=== PATIENT | male | born 1965 | race Caucasian/White ===

== ENCOUNTER 2019-12-08 14:42 | Emergency (ER) | payer OTHER, SELFPAY ==
--- NOTE | 2019-12-08 14:44 | XR_ITS ---
WS: [id number] Left wrist, 3 views, 12/08/2019 Clinical Data: pain/injury Comparison: None. Findings: No fractures or dislocations are seen. The carpal bones are intact. There is no soft tissue swelling. The distal radius and ulna are not remarkable. There are radiopaque fragments adjacent to the distal scaphoid and in the subcutaneous tissue of the left first metacarpal. XR/XR wrist LT min 3V* [id number] Impression: 1. Negative for fracture or dislocation. 2. Metal fragments in the subcutaneous tissues of the lateral posterior left wr ist and also in the thenar eminence.
[2019-12-08 15:08] VITALS: BP 138/73; PULSE 65; RESP 14; TEMP 36.5; O2SAT 96; BMI 27.6
--- NOTE | 2019-12-08 15:17 | W.ED.UPPEXIN ---
HPI - Extremity Injury (Upper) General: Chief Complaint: Wound/Laceration Stated Complaint: L WRIST INJURY Time Seen by Provider: 12/08/19 15:17 Source: patient Mode of arrival: ambulatory Limitations: no limitations History of Present Illness: HPI narrative: Patient is a 54-year-old male presents to ED today with a complaint of a left hand injury. Patient tells me he was using a metal utensil to unscrew lug nuts from a tire wheel when some of the metal grinding did and a few shards came back and struck him in his left hand and wrist. Onset (ago): hour(s) Other injuries: none Severity: mild Relieving factors: none Exacerbating factors: none Associated symptoms: Reports no associated symptoms Review of Systems Musc: Reports: other (pt does not complain of pain at this time) Skin/Breast: Reports: other (metal fb to L hand) Physical Exam Const: COMMON NORMALS: no acute distress, average body habitus, patient oriented x3, no limitations, healthy appearing, alert and well nourished Extremity: OTHER: I only visualize one puncture armando to patient's hand and wrist and that is to the dorsum of his left thumb near the anatomical snuffbox. No bleeding. Metal fb cannot be felt or visualized at this time. Neuro: COMMON NORMALS: patient oriented x3 SENSORIUM/ORIENTATION: Yes alert Course Vital Signs: Vital signs: Vital Signs Temperature 97.7 F 12/08/19 15:08 Pulse Rate 65 12/08/19 15:08 Respiratory Rate 14 12/08/19 15:08 Blood Pressure 138/73 12/08/19 15:08 Pulse Oximetry 96 12/08/19 15:08 MDM - Extremity Injury (Upper) MDM Narrative: Medical decision making narrative: Patient's x-ray shows multiple foreign bodies however I only see one puncture armando on clinical examination. 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 He does have a larger 5 mm foreign body that fits clinically. On patient's lateral projection it looks like foreign body is approximately 1 cm deep. I do not feel comfortable trying to remove this from the emergency department due to anatomical location. Patient counseled on possibility of foreign body staying in place, working its way out, or possible infection. We will go ahead and place patient on Keflex. We will get him follow-up with Dr. Sanders to see if feels there is any indication for removal. Strict return to ED precautions given. Imaging Data^: L wrist XR: Radiologist's impression: [address] [address] XRay Report Signed Patient: Kehinde Herring Unit #: [id number] : 1965 Age/Sex: 54 / M ADM Date: 12/08/19 Loc: ER Room/Bed: Attending Dr: Ordering Provider/Ordering MD: Haley Owens Date of Service: 12/08/19 Procedure(s): XR wrist LT min 3V* [id number] Accession Number(s): [id number] Report Number: [id number] WS: [id number] Left wrist, 3 views, 12/08/2019 Clinical Data: pain/injury Comparison: None. Findings: No fractures or dislocations are seen. The carpal bones are intact. There is no soft tissue swelling. The distal radius and ulna are not remarkable. There are radiopaque fragments adjacent to the distal scaphoid and in the subcutaneous tissue of the left first metacarpal. XR/XR wrist LT min 3V* 60715 Impression: 1. Negative for fracture or dislocation. 2. Metal fragments in the subcutaneous tissues of the lateral posterior left wrist and also in the thenar eminence. Dictated By: Janina Ray MD Signed By: Janina Ray MD Signed Date/Time: 12/08/19 1510 DD/ 1501 Discharge Plan Discharge Patient Disposition: Home Clinical Impression: Acute foreign body of left hand Qualifiers: Encounter type: initial encounter Qualified Code(s): S60.552A - Superficial foreign body of left hand, initial encounter Condition: Stable Prescriptions: New Keflex 500 mg capsule 500 mg PO Q6H 7 Days Qty: 28 RF: 0 No Action Aleve 220 mg Tablet 220 mg PO Q8H PRN (Reason: Pain) RF: 0 Centrum Silver Men 300-600-300 mcg Tablet 1 tab PO DAILY RF: 0 Discharge Orders: Discharge Order (Routine); Ordered 12/08/19 Ordered By: Haley Owens Referrals: Leonard Saldivar [Primary Care Provider] - Nahun Sanders DO [Physician] - Activity Restrictions/Additional Instructions: Please begin taking your antibiotics as soon as possible. Keep area clean with warm soap and water. Return to the emergency department for any redness, swelling, drainage, increased pain. Case management should contact you shortly to set you up with your orthopedic follow-up appointment. Coding Level of Care Code ED Receptionist Nurse for Jeaneth Matos
--- NOTE | 2019-12-08 15:41 | DCPLANNER ---
entry level manager was asked to schedule a follow up appointment for patient with ortho. entry level manager called the ortho clinic, spoke with Ml, gave clinic patients information. entry level manager was told that patients information would be printed and reviewed. Clinic will call patient with appointment information.
--- NOTE | 2019-12-22 08:54 | DCPLANNER ---
manager forms called ortho clinic, spoke with Pat to confirm if an appointment had been scheduled. manager forms was told that patients chart is still in review.
--- NOTE | 2019-12-23 08:13 | DCPLANNER ---
Patient has a follow up appointment scheduled for 12.26.[address] Todd at ortho. Clinic will call patient with appointment information.
--- NOTE | 2019-12-29 14:44 | DCPLANNER ---
Patient did attend appointment scheduled for 12.26.19 with ortho.
== END 2019-12-08 15:47 | disposition home or self-care (01) ==
PROVIDERS: Emergency Provider Physician Assistant; PCP Internal Medicine
DX: S61.442A Puncture wound with foreign body of left hand, initial encounter (principal); W26.8XXA Contact with other sharp object(s), not elsewhere classified, initial encounter
CPT/HCPCS: 12345; 73110; 99281; 99282

== ENCOUNTER → 2019-12-26 09:56 | Outpatient (BNVA) | payer OTHER, SELFPAY | PROVIDERS: PCP Internal Medicine; Referring Provider Family Medicine; Visit Provider Specialist | DX: S60.552A Superficial foreign body of left hand, initial encounter (principal); X58.XXXA Exposure to other specified factors, initial encounter | CPT/HCPCS: 73130 ==

== ENCOUNTER → 2021-09-30 14:02 | Outpatient (BNVA) | payer OTHER, SELFPAY | PROVIDERS: PCP Internal Medicine; Referring Provider Nurse Practitioner Family; Visit Provider Specialist | DX: R20.0 Anesthesia of skin (principal); R20.2 Paresthesia of skin; S60.552A Superficial foreign body of left hand, initial encounter; F17.210 Nicotine dependence, cigarettes, uncomplicated; Y93.9 Activity, unspecified | CPT/HCPCS: 95910; 95912 ==

== ENCOUNTER → 2022-03-05 07:57 | Outpatient (BNVA) | payer OTHER, SELFPAY | PROVIDERS: PCP Internal Medicine; Visit Provider Specialist | DX: I73.00 Raynaud's syndrome without gangrene (principal) | CPT/HCPCS: 73110; 99214 ==

== ENCOUNTER 2022-06-02 01:00 | Outpatient (CLI) | payer OTHER, SELFPAY | END 2022-06-02 23:00 | disposition home or self-care (01) | LOC: RAD 06-17 21:07 | PROVIDERS: PCP Family Medicine; Visit Provider Internal Medicine Rheumatology | DX: Z79.899 Other long term (current) drug therapy (principal); M19.90 Unspecified osteoarthritis, unspecified site; M45.6 Ankylosing spondylitis lumbar region | CPT/HCPCS: 36415; 82306; 85651; 86140; 86160; 86162; 86200; 86235; 86255; 86376; 86431; 86812 ==

== ENCOUNTER → 2022-06-02 10:00 | Outpatient (BNVA) | payer OTHER, SELFPAY | PROVIDERS: PCP Family Medicine; Referring Provider Family Medicine; Visit Provider Internal Medicine Rheumatology | DX: M71.331 Other bursal cyst, right wrist (principal); Z79.899 Other long term (current) drug therapy; M19.90 Unspecified osteoarthritis, unspecified site; M45.6 Ankylosing spondylitis lumbar region; R76.8 Other specified abnormal immunological findings in serum; M25.50 Pain in unspecified joint; I73.00 Raynaud's syndrome without gangrene | CPT/HCPCS: 73130; 73630; 99204 ==

== ENCOUNTER 2022-07-09 09:34 | Outpatient (CLI) | payer OTHER, SELFPAY ==
--- NOTE | 2022-07-09 10:15 | US_ITS ---
WS: [id number] ULTRASOUND SOFT TISSUES RIGHT wrist. HISTORY: M71.331 - Other bursal cyst, right wrist COMPARISON: Radiograph 06/02/2022. TECHNIQUE: 2-D and color Doppler imaging is submitted. Hypoechoic soft tissue mass along the lateral RIGHT wrist at the base of the thumb. This hypoechoic m ass contains minimal peripheral vascularity and measures 10 x 10 x 6 mm. There is a small tail extend ing towards the joint. Favor this is probably a ganglion. US/US soft tissue/extremity [id number] IMPRESSION: Hypoechoic nodule RIGHT wrist at the base of the thumb. Most typical for a smal l ganglion.
== END 2022-07-09 09:35 | disposition home or self-care (01) ==
LOC: RAD 09:37
PROVIDERS: PCP Family Medicine; Visit Provider Internal Medicine Rheumatology
DX: M71.331 Other bursal cyst, right wrist (principal)
CPT/HCPCS: 76882

== ENCOUNTER → 2022-08-27 14:38 | Outpatient (BNVA) | payer OTHER, SELFPAY | PROVIDERS: PCP Family Medicine; Visit Provider Internal Medicine Rheumatology | DX: M25.50 Pain in unspecified joint (principal); Z79.899 Other long term (current) drug therapy; I73.00 Raynaud's syndrome without gangrene; M71.332 Other bursal cyst, left wrist | CPT/HCPCS: 99214 ==

== ENCOUNTER → 2022-11-26 12:32 | Outpatient (BNVA) | payer OTHER, SELFPAY | PROVIDERS: PCP Family Medicine; Visit Provider Internal Medicine Rheumatology | DX: I73.00 Raynaud's syndrome without gangrene (principal); M25.50 Pain in unspecified joint; M71.332 Other bursal cyst, left wrist; M06.042 Rheumatoid arthritis without rheumatoid factor, left hand; M06.041 Rheumatoid arthritis without rheumatoid factor, right hand | CPT/HCPCS: 99214 ==

== ENCOUNTER → 2023-01-14 08:46 | Outpatient (BNVA) | payer OTHER, SELFPAY | PROVIDERS: PCP Family Medicine; Referring Provider Family Medicine; Visit Provider Specialist | DX: M65.811 Other synovitis and tenosynovitis, right shoulder | CPT/HCPCS: 73030; 99214 ==

== ENCOUNTER 2023-02-20 08:19 | Outpatient (RCR) | payer OTHER, SELFPAY | END 2023-02-27 23:59 | disposition home or self-care (01) | LOC: SPT 08:19 | PROVIDERS: Visit Provider Specialist | DX: M25.511 Pain in right shoulder (principal) | CPT/HCPCS: 97110; 97162 ==

== ENCOUNTER → 2023-05-27 13:22 | Outpatient (BNVA) | payer OTHER, SELFPAY | PROVIDERS: Visit Provider Dermatology | DX: D48.5 Neoplasm of uncertain behavior of skin (principal); L57.0 Actinic keratosis; L82.1 Other seborrheic keratosis; L57.8 Other skin changes due to chronic exposure to nonionizing radiation; L81.4 Other melanin hyperpigmentation; D22.4 Melanocytic nevi of scalp and neck | CPT/HCPCS: 11102; 17000; 99203 ==

== ENCOUNTER → 2023-06-09 07:43 | Outpatient (BNVA) | payer OTHER, SELFPAY | PROVIDERS: Visit Provider Dermatology | DX: C44.329 Squamous cell carcinoma of skin of other parts of face (principal) | CPT/HCPCS: 13132; 17311 ==

== ENCOUNTER → 2023-10-08 10:21 | Outpatient (BNVA) | payer OTHER, SELFPAY | PROVIDERS: Visit Provider Nurse Practitioner Family | DX: L57.0 Actinic keratosis (principal); S50.912A Unspecified superficial injury of left forearm, initial encounter; X58.XXXA Exposure to other specified factors, initial encounter; L82.1 Other seborrheic keratosis; L57.8 Other skin changes due to chronic exposure to nonionizing radiation; L81.4 Other melanin hyperpigmentation; D22.5 Melanocytic nevi of trunk; Z85.828 Personal history of other malignant neoplasm of skin | CPT/HCPCS: 17000; 99213 ==

== ENCOUNTER → 2024-02-08 10:31 | Outpatient (BNVA) | payer OTHER, SELFPAY | PROVIDERS: Visit Provider Nurse Practitioner Family | DX: L82.1 Other seborrheic keratosis (principal); D22.5 Melanocytic nevi of trunk; Z85.828 Personal history of other malignant neoplasm of skin | CPT/HCPCS: 99213 ==

== ENCOUNTER → 2024-08-08 09:41 | Outpatient (BNVA) | payer OTHER, SELFPAY | PROVIDERS: Visit Provider Nurse Practitioner Family | DX: L82.1 Other seborrheic keratosis (principal); L81.4 Other melanin hyperpigmentation; Z08 Encounter for follow-up examination after completed treatment for malignant neoplasm; Z85.828 Personal history of other malignant neoplasm of skin; L57.0 Actinic keratosis | CPT/HCPCS: 17000; 99213 ==

== ENCOUNTER → 2025-05-01 08:57 | Outpatient (BNVA) | payer OTHER, SELFPAY | PROVIDERS: Visit Provider Nurse Practitioner Family | DX: L73.8 Other specified follicular disorders (principal); L82.1 Other seborrheic keratosis; L81.4 Other melanin hyperpigmentation; Z08 Encounter for follow-up examination after completed treatment for malignant neoplasm; Z85.828 Personal history of other malignant neoplasm of skin; L57.0 Actinic keratosis | CPT/HCPCS: 17000; 99213 ==